=== PATIENT | male | born 1965 | race Caucasian/White ===

== ENCOUNTER 2018-04-13 08:11 | Outpatient (CLI) | payer OTHER ==
--- NOTE | 2018-04-13 12:20 | RAD ---
BARIUM ESOPHAGRAM: DATE: 04/13/18. HISTORY: Gastroesophageal reflux disease. FLUOROSCOPY: Total fluoroscopy time is 0.9 minutes, total dose 52.06 mGy. FINDINGS: The esophagus has a normal appearance without evidence of a mucosal irregularity or focal area of declan rowing. There is a minimal sliding-type hiatal hernia present. No gastroesophageal reflux was demon strated during this exam. A 12.5 mm barium tablet was administered which traversed the GE junction f reely and without holdup. There is a small outpouching of contrast seen involving the posterior aspe ct of the proximal body of the stomach near the region of the gastric cardia suggesting a small gastr ic diverticulum. IMPRESSION: 1. No mucosal irregularity seen within the esophagus. 2. Minimal sliding-type hiatal hernia. 3. Findings suggestive of a small gastric diverticulum posterior aspect proximal body of the stomach . 4. No gastroesophageal reflux was demonstrated during the exam. POS: DELISA
== END 2018-04-13 08:12 | disposition home or self-care (01) ==
LOC: RAD 08:11
PROVIDERS: ATTEND Internal Medicine
DX: K21.9 Gastro-esophageal reflux disease without esophagitis (principal); K44.9 Diaphragmatic hernia without obstruction or gangrene
CPT/HCPCS: 74220

== ENCOUNTER 2018-10-12 11:32 | Outpatient (CLI) | payer OTHER ==
[2018-10-12 12:55] LABS: #Eosinphils 0.2 thou/uL (0.0-0.7); #Lymphocytes 2.3 thou/uL (1.20-3.40); #Monocytes 0.5 thou/uL (0.11-0.59); #Neutrophils 3.4 thou/uL (1.40-6.50); %Basophils 0.5 % (0.0-1.0); %Eosinophils 2.8 % (0.0-10.0); %Lymphocytes 35.1 % (21.0-51.0); %Monocytes 8.4 % (0.0-10.0); %Neutrophils 53.1 % (42.0-75.0); Hemoglobin 15.2 g/dL (14.0-18.0); Mean Corpuscular HGB CONC 35.1 g/dL (32.0-36.0); Mean Corpuscular Hemoglobin 32.4 pg (27.0-31.0); Mean Corpuscular Volume 92.5 fL (78.0-98.0); Mean Platelet Volume 7.3 fL (7.4-10.4); Platelet Count 314 thou/uL (130-400); RBC Distribution Width 11.8 % (11.5-14.5); Red Blood Cell (RBC) Count 4.69 mill/uL (4.70-6.10); White Blood Cell (WBC) Count 6.5 thou/uL (4.8-10.8)
[2018-10-12 13:07] LABS: Anion Gap 13 mmol/L (10-20); BUN (Urea Nitrogen) 14 mg/dL (8.4-25.7); Calc. Creatinine Clearance 0 mL/min (70-130); Calcium 9.8 mg/dL (7.8-10.44); Carbon Dioxide 26 mmol/L (22-29); Chloride 100 mmol/L (98-107); Estimated GFR-MDRD 78; Glucose 97 mg/dL (70-105); Potassium 3.7 mmol/L (3.5-5.1); Sodium 135 mmol/L (136-145)
--- NOTE | 2018-10-12 17:28 | EKG ---
Test Reason : Blood Pressure : / mmHG Vent. Rate : 081 BPM Atrial Rate : 081 BPM P-R Int : 158 ms QRS Dur : 092 ms QT Int : 370 ms P-R-T Axes : 035 103 -05 degrees QTc Int : 429 ms Normal sinus rhythm Rightward axis Incomplete right bundle branch block Anterior infarct , age undetermined (possibly with poor R wave progression V1-V3. Abnormal ECG No previous ECGs available Confirmed by VENKATA FORD ([id number]) on 10/12/2018 5:28:14 PM Referred By: JOANNA Confirmed By:VENKAAT FORD
== END 2018-10-12 11:33 | disposition home or self-care (01) ==
LOC: LABBT 11:32
PROVIDERS: ATTEND Surgery
DX: Z01.818 Encounter for other preprocedural examination (principal); K42.9 Umbilical hernia without obstruction or gangrene
CPT/HCPCS: 80048; 85025; 93005; 93010

== ENCOUNTER 2018-10-15 12:45 | Day surgery (SDC) | payer OTHER ==
[2018-10-12 11:55] VITALS: BMI 26.2
[2018-10-15] MEDS ORDERED: Fentanyl 100 MCG/2 ML VIAL ONE ×3 (15:39→17:51)
[2018-10-15] MEDS ORDERED: CEFAZOLIN 2 GM/50 ML BAG ONE (15:55)
[2018-10-15] MEDS ORDERED: Bupivacaine/Epinephrine 0.25% 30 ML VIAL ONE (16:29)
[2018-10-15] MEDS ORDERED: Glycopyrrolate 0.2 MG/ML 5 ML SYRINGE ONE (16:50)
[2018-10-15] MEDS ORDERED: Ondansetron PF 4 MG/2 ML Vial ONE (16:50)
[2018-10-15] MEDS ORDERED: Dexamethasone 20 MG/5 ML VIAL ONE (16:50)
[2018-10-15] MEDS ORDERED: PROPOFOL 200 MG/20 ML VIAL ONE (16:50)
[2018-10-15] MEDS ORDERED: Ketorolac Tromethamine 30 MG/ML VIAL ONE (16:50)
--- NOTE | 2018-10-16 13:30 | OP ---
DATE OF PROCEDURE: 10/15/2018 PREOPERATIVE DIAGNOSIS: Umbilical hernia. POSTOPERATIVE DIAGNOSIS: Umbilical hernia. PROCEDURE PERFORMED: Umbilical hernia repair with mesh, Ventralex ST small. ANESTHESIA: General. ESTIMATED BLOOD LOSS: Minimal. COMPLICATIONS: None. SPECIMEN: None. FINDINGS: Umbilical hernia. DESCRIPTION OF PROCEDURE: The patient was taken to the operating room and laid supine on the operating room table. After general anesthetic was obtained, the abdomen was shaved, prepped, and draped in a sterile fashion. A curved incision was made below the umbilicus. Cautery was used to dissect down to and score the fascia. The umbilical stalk was amputated, exposing umbilical defect. The edges of the defect were freshened. The Ventralex ST small mesh was brought into the sterile field placed in the preperitoneal space. The tails pulled up lateral abdominal wall. The tails were then secured to the mesh and was sewn via interrupted permanent braided suture to the edges of the fascia. The tails were cut at the level of the fascia. The fascia was closed loosely over the mesh. The wound was irrigated. Local anesthetic was applied. The wound was closed using the umbilical stalk. It was tacked back down using 3-0 Vicryl. The skin was closed using 3-0 Vicryl, 4-0 Monocryl, and Dermabond. The patient was sent to Recovery in stable condition. All instrument counts, needle counts, and lap counts were correct. Job ID: [id number]
== END 2018-10-15 19:39 | disposition home or self-care (01) ==
LOC: SDC 12:45
PROVIDERS: ATTEND Surgery
PROC: 0WUF0JZ Supplement Abdominal Wall with Synthetic Substitute, Open Approach (ICD-10-PCS; principal; 2018-10-15)
DX: K42.9 Umbilical hernia without obstruction or gangrene (principal); I10 Essential (primary) hypertension; E78.5 Hyperlipidemia, unspecified; K21.9 Gastro-esophageal reflux disease without esophagitis; Z79.82 Long term (current) use of aspirin; Z79.899 Other long term (current) drug therapy; Z98.890 Other specified postprocedural states
CPT/HCPCS: 96374; J1100; J1885; J2405; J2704; J3010